=== PATIENT | female | born 1990 | race Caucasian/White ===

== ENCOUNTER 2020-10-17 00:21 | Day surgery (SDC) | payer OTHER ==
[2020-10-17 00:56] VITALS: BMI 34.4
[2020-10-17] MEDS ORDERED: hydrALAZINE 20 MG/ML VIAL SLOW IVP PRN (01:26)
[2020-10-17] MEDS ORDERED: Promethazine HCl 25 MG/ML VIAL IM SCH (01:30)
[2020-10-17] MEDS: Lactated Ringer's 1,000 ML IV SCH ×2 (01:48→03:13)
[2020-10-17] MEDS ORDERED: Ondansetron PF 4 MG/2 ML Vial IVP SCH (03:00)
== END 2020-10-17 05:25 | disposition home or self-care (01) ==
LOC: CSHLD/OP 00:21
PROVIDERS: ATTEND Obstetrics & Gynecology
DX: O99.891 Other specified diseases and conditions complicating pregnancy (principal); R19.7 Diarrhea, unspecified; O21.2 Late vomiting of pregnancy; Z3A.34 34 weeks gestation of pregnancy; Z79.899 Other long term (current) drug therapy
CPT/HCPCS: 96360; 96361; 96372; 96374; 99282; J2405; J2550

== ENCOUNTER 2020-11-01 14:12 | Outpatient (CLI) | payer OTHER ==
[2020-11-02 01:28] LABS: SARS-CoV-2 PCR by NAA Not Detected (NotDetected)
== END 2020-11-01 14:13 | disposition home or self-care (01) ==
LOC: CSHLAB 14:12
PROVIDERS: ATTEND Obstetrics & Gynecology
DX: Z20.822 Contact with and (suspected) exposure to COVID-19 (principal)
CPT/HCPCS: 87635; U0003; U0005

== ENCOUNTER 2020-11-06 15:27 | Inpatient (IN) | payer OTHER ==
[~2020-11-06 15:27] MED LIST: Bupivacaine 0.25% HCL 30 ML VIAL ONE; Lidocaine 2% 10 ML INJ ONE
[2020-11-06 21:20] VITALS: BMI 36.0
[2020-11-06] MEDS: Lactated Ringer's 1,000 ML IV SCH (21:20)
[2020-11-06] MEDS ORDERED: HYDROcodone/Acetaminophen 5/325 mg Tablet PO PRN ×2 (21:42)
[2020-11-06] MEDS ORDERED: NS / Oxytocin 40 units/1000ml 1,000 ML IV PRN (21:42)
[2020-11-06] MEDS ORDERED: Lidocaine 1% (PF) 30 ML VIAL SC PRN (21:42)
[2020-11-06] MEDS ORDERED: Promethazine HCl 25 MG/ML VIAL IM PRN (21:42)
[2020-11-06] MEDS ORDERED: Misoprostol 100 MCG TAB VAG SCH (21:42)
[2020-11-06] MEDS ORDERED: hydrALAZINE 20 MG/ML VIAL SLOW IVP PRN (21:42)
[2020-11-06] MEDS ORDERED: Ibuprofen 800 MG TAB PO PRN (21:42)
[2020-11-06] MEDS ORDERED: Ondansetron PF 4 MG/2 ML Vial IVP PRN (21:42)
[2020-11-06 22:21] LABS: Hemoglobin 12.9 g/dL (12.0-15.5); Mean Corpuscular HGB CONC 33.5 g/dL (32.0-36.0); Mean Corpuscular Hemoglobin 29.6 pg (27.0-33.0); Mean Corpuscular Volume 88.3 fl (81.6-98.3); Mean Platelet Volume 12.9 fl (7.4-10.4); Platelet Count 145 10x3/uL (150-450); RBC Distribution Width 13.1 % (11.5-14.5); Red Blood Cell (RBC) Count 4.36 10x6/uL (3.90-5.03); White Blood Cell (WBC) Count 7.4 10x3/uL (3.5-10.5)
[2020-11-06 22:40] LABS: ALT (SGPT) 19 U/L (8-55); AST (SGOT) 24 U/L (5-34); Albumin 3.3 g/dL (3.5-5.0); Alkaline Phosphatase 233 U/L (40-110); Anion Gap 16 mmol/L (10-20); BUN (Urea Nitrogen) 8 mg/dL (7.0-18.7); Bilirubin, Total 0.2 mg/dL (0.2-1.2); Calc. Creatinine Clearance 197 mL/min (70-130); Calcium 8.8 mg/dL (7.8-10.44); Carbon Dioxide 18 mmol/L (22-29); Chloride 110 mmol/L (98-107); Globulin 2.7 g/dL (2.4-3.5); Glucose 97 mg/dL (70-105); Potassium 3.8 mmol/L (3.5-5.1); Sodium 140 mmol/L (136-145)
[2020-11-06 23:01] LABS: Hep B Surf Ag Non-Reactive S/CO (NonReactive); Syphilis Antibody Nonreactive (Nonreactive); Syphilis Antibody Index 0.03 S/CO (<1.00 Non-Reactive)
[2020-11-06 23:30] LABS: HBSAg Index 0.13 S/CO (0-0.99)
[2020-11-07] MEDS: Misoprostol 100 MCG TAB VAG SCH ×2 (01:55→06:34)
[2020-11-07] MEDS ORDERED: Acetaminophen 500 MG TAB PO PRN (04:38)
[2020-11-07] MEDS: Lactated Ringer's 1,000 ML IV SCH ×4 (06:05→16:28)
[2020-11-07] MEDS: Butorphanol Tartrate 1 MG/ML VIAL SLOW IVP PRN ×2 (11:01→12:28)
[2020-11-07] MEDS: Fentanyl 4 mcg/Bup 0.1% Cadd 100 ML ONE ×2 (14:56→21:52)
[2020-11-07] MEDS ORDERED: NS w/ Oxytocin 30 units 500 ML ONE (16:21)
[2020-11-07] MEDS ORDERED: Fentanyl 4 mcg/Bup 0.1% Cadd 100 ML ONE (21:51)
[2020-11-07] MEDS ORDERED: diphenhydrAMINE 50 MG/ML VIAL IVP PRN (22:34)
[2020-11-07] MEDS ORDERED: Promethazine HCl 25 MG/ML VIAL IM PRN (22:34)
[2020-11-07] MEDS ORDERED: Eucerin (Mineral Oil/Petrolatum,White) 30 gm Jar TOP PRN (22:34)
[2020-11-07] MEDS ORDERED: Lactated Ringer's 500 ML IV PRN (22:34)
[2020-11-07] MEDS ORDERED: Naloxone HCl 0.4 mg/ml Vial IVP PRN ×2 (22:34)
[2020-11-07] MEDS ORDERED: Acetaminophen 325 MG TAB PO PRN (22:34)
[2020-11-07] MEDS ORDERED: Ondansetron PF 4 MG/2 ML Vial IVP PRN (22:34)
[2020-11-07] MEDS ORDERED: ePHEDrine 50 MG/ML VIAL SLOW IVP PRN (22:34)
[2020-11-07] MEDS ORDERED: Communication Order-Pharmacy FS SCH (22:45)
[2020-11-07] MEDS ORDERED: Fentanyl 4 mcg/Bupivacaine 0.1% Cassette 100 ML EPIDURAL SCH (22:45)
[2020-11-08] MEDS ORDERED: Fentanyl 4 mcg/Bup 0.1% Cadd 100 ML ONE ×2 (04:22→11:04)
[2020-11-08] MEDS ORDERED: Lidocaine 1% (PF) 30 ML VIAL ONE (11:11)
[2020-11-08] MEDS ORDERED: NS w/ Oxytocin 30 units 500 ML ONE (11:11)
[2020-11-08] MEDS ORDERED: Carboprost 250 MCG/ML AMP ONE (13:43)
[2020-11-08] MEDS ORDERED: Misoprostol 200 MCG TAB ONE (13:43)
[2020-11-08] MEDS ORDERED: Fentanyl 100 MCG/2 ML VIAL ONE (14:09)
[2020-11-08] MEDS ORDERED: Fentanyl 100 MCG/2 ML VIAL SLOW IVP SCH ×2 (14:15→14:30)
[2020-11-08] MEDS ORDERED: Communication Order-Pharmacy FS PRN (14:49)
[2020-11-08] MEDS ORDERED: Bicitra 30 ML UDCUP PO PRN (15:29)
[2020-11-08] MEDS ORDERED: Famotidine/PF 20 mg/2ml Vial SLOW IVP PRN (15:29)
[2020-11-08] MEDS ORDERED: CEFAZOLIN 2 GM in Premix Bag 1 BAG IVPB SCH (15:30)
[2020-11-08] MEDS ORDERED: Azithromycin 500 MG in Sodium Chloride 0.9% 250 ML 250 ML IVPB SCH (15:30)
[2020-11-08] MEDS ORDERED: Azithromycin 500 MG VIAL ONE (15:33)
[2020-11-08] MEDS ORDERED: Morphine PF 10 MG/10 ML VIAL ONE (15:49)
[2020-11-08] MEDS ORDERED: PHENYLEPHRINE-NS 100 MCG/ML 10 ML SYRINGE ONE (15:50)
[2020-11-08] MEDS ORDERED: Phenylephrine 10 MG/ML VIAL ONE (15:50)
[2020-11-08] MEDS ORDERED: Lidocaine 2% PF 100 mg/5 ml Syringe ONE (15:51)
[2020-11-08] MEDS ORDERED: Midazolam HCl 2 mg/2 ml Vial ONE ×2 (16:18→16:29)
[2020-11-08] MEDS ORDERED: PROPOFOL 20 ML ONE (16:37)
[2020-11-08] MEDS ORDERED: Ketorolac Tromethamine 30 MG/ML VIAL ONE (17:02)
[2020-11-08] MEDS ORDERED: HYDROmorphone 2 MG/ML VIAL SLOW IVP PRN (17:23)
[2020-11-08] MEDS ORDERED: Naloxone HCl 0.4 mg/ml Vial IVP PRN ×2 (17:23)
[2020-11-08] MEDS ORDERED: L&D-Morphine 4 MG/ML VIAL SLOW IVP PRN (17:23)
[2020-11-08] MEDS ORDERED: Promethazine HCl 25 MG/ML VIAL IM PRN (17:23)
[2020-11-08] MEDS ORDERED: diphenhydrAMINE 50 MG/ML VIAL IVP PRN (17:23)
[2020-11-08] MEDS ORDERED: Promethazine HCl 25 MG SUPP PR PRN (17:23)
[2020-11-08] MEDS ORDERED: Eucerin (Mineral Oil/Petrolatum,White) 30 gm Jar TOP PRN (17:23)
[2020-11-08] MEDS ORDERED: Ondansetron HCl/PF 4 MG/2 ML Vial IVP PRN (17:23)
[2020-11-08] MEDS ORDERED: Ketorolac Tromethamine 30 MG/ML VIAL IVP PRN (17:23)
[2020-11-08] MEDS ORDERED: Ondansetron PF 4 MG/2 ML Vial IVP PRN ×2 (17:23→20:26)
[2020-11-08] MEDS ORDERED: Naloxone HCl 0.4 mg/ml Vial IV PRN (17:23)
[2020-11-08] MEDS ORDERED: Meperidine HCl/PF 25 MG/ML VIAL SLOW IVP PRN (17:23)
[2020-11-08] MEDS ORDERED: Communication Order-Pharmacy FS SCH (17:30)
[2020-11-08] MEDS: Lactated Ringer's 1,000 ML IV SCH (18:40)
[2020-11-08] MEDS ORDERED: Meperidine HCl/PF 25 MG/ML VIAL ONE (18:59)
[2020-11-08] MEDS ORDERED: Lanolin Ointment 7 GM TUBE TOP PRN (20:26)
[2020-11-08] MEDS ORDERED: Simethicone Chewable 80 MG TAB PO PRN (20:26)
[2020-11-08] MEDS ORDERED: hydrALAZINE 20 MG/ML VIAL SLOW IVP PRN (20:26)
[2020-11-08] MEDS ORDERED: HYDROcodone/Acetaminophen 5/325 mg Tablet PO PRN (20:26)
[2020-11-08] MEDS ORDERED: Adacel (T-DAP) 0.5 ML SYRINGE IM ONE (20:26)
[2020-11-08] MEDS: Ibuprofen 800 MG TAB PO SCH (21:55)
[2020-11-09] MEDS: Ibuprofen 800 MG TAB PO SCH ×3 (05:49→21:33)
[2020-11-09 07:22] LABS: Hemoglobin 9.1 g/dL (12.0-15.5); Mean Corpuscular HGB CONC 32.9 g/dL (32.0-36.0); Mean Corpuscular Hemoglobin 29.8 pg (27.0-33.0); Mean Corpuscular Volume 90.8 fl (81.6-98.3); Mean Platelet Volume 12.9 fl (7.4-10.4); Platelet Count 119 10x3/uL (150-450); RBC Distribution Width 13.6 % (11.5-14.5); Red Blood Cell (RBC) Count 3.05 10x6/uL (3.90-5.03); White Blood Cell (WBC) Count 14.7 10x3/uL (3.5-10.5)
[2020-11-09] MEDS: Misoprostol 100 MCG TAB VAG SCH ×4 (07:30→07:35)
[2020-11-09] MEDS: Prenatal Vitamin 1 TAB PO SCH (09:35)
[2020-11-09] MEDS ORDERED: Hydrocerin (Eucerin) Cream 120 gm Jar TOP PRN (14:30)
[2020-11-09] MEDS: HYDROcodone/Acetaminophen 5/325 mg Tablet PO PRN ×2 (15:26→21:36)
[2020-11-10] MEDS: Ibuprofen 800 MG TAB PO SCH ×3 (04:52→22:12)
[2020-11-10] MEDS: HYDROcodone/Acetaminophen 5/325 mg Tablet PO PRN ×3 (04:53→22:30)
[2020-11-10] MEDS: Prenatal Vitamin 1 TAB PO SCH (09:03)
[2020-11-11] MEDS: HYDROcodone/Acetaminophen 5/325 mg Tablet PO PRN ×2 (05:22→12:48)
[2020-11-11] MEDS: Ibuprofen 800 MG TAB PO SCH ×2 (05:23→12:41)
[2020-11-11] MEDS: Prenatal Vitamin 1 TAB PO SCH (08:52)
[2020-11-11] MEDS ORDERED: Labetalol 100 MG TAB PO SCH ×2 (12:15→21:00)
[2020-11-11 18:29] VITALS: BP 133/70; TEMP 97.9
== END 2020-11-11 17:00 | disposition home or self-care (01) | DRG 787 ==
LOC: CSHLD 20:43 → CSHPP 11-08 20:43
PROVIDERS: ADMIT Obstetrics & Gynecology; ATTEND Obstetrics & Gynecology
PROC: 3E0DXGC Introduction of Other Therapeutic Substance into Mouth and Pharynx, External Approach (ICD-10-PCS; 2020-11-06)
PROC: 0U7C7ZZ Dilation of Cervix, Via Natural or Artificial Opening (ICD-10-PCS; 2020-11-07)
PROC: 10907ZC Drainage of Amniotic Fluid, Therapeutic from Products of Conception, Via Natural or Artificial Opening (ICD-10-PCS; 2020-11-07)
PROC: 10D00Z1 Extraction of Products of Conception, Low, Open Approach (ICD-10-PCS; principal; 2020-11-08)
DX: O13.4 Gestational [pregnancy-induced] hypertension without significant proteinuria, complicating childbirth (principal); D62 Acute posthemorrhagic anemia; Z3A.37 37 weeks gestation of pregnancy; Z37.0 Single live birth; Z20.822 Contact with and (suspected) exposure to COVID-19; O99.344 Other mental disorders complicating childbirth; O99.284 Endocrine, nutritional and metabolic diseases complicating childbirth; F90.9 Attention-deficit hyperactivity disorder, unspecified type; E03.9 Hypothyroidism, unspecified; Z79.890 Hormone replacement therapy; O90.81 Anemia of the puerperium; F41.0 Panic disorder [episodic paroxysmal anxiety]; O64.0XX0 Obstructed labor due to incomplete rotation of fetal head, not applicable or unspecified
CPT/HCPCS: 36415; 51702; 71045; 80053; 85027; 86780; 86850; 86900; 86901; 87340; J0456; J0595; J0690; J1200; J1885; J2001; J2175; J2250; J2274; J2370; J2405; J2590; J2704; J3010; S0020

== ENCOUNTER 2020-11-12 03:52 | Inpatient (IN) | payer OTHER ==
[2020-11-12] MEDS ORDERED: Promethazine HCl 25 MG/ML VIAL IM PRN (04:00)
[2020-11-12] MEDS ORDERED: Calcium Gluconate 4.6 MEQ in Sodium Chloride 0.9% 100 ML IVPB PRN (04:00)
[2020-11-12] MEDS ORDERED: hydrALAZINE 20 MG/ML VIAL SLOW IVP PRN (04:00)
[2020-11-12 04:16] VITALS: BMI 35.2
[2020-11-12] MEDS ORDERED: Furosemide 20 MG/2 ML VIAL SLOW IVP SCH (04:30)
[2020-11-12] MEDS: Magnesium Sulfate 20 gm/500 ml 20 GM/500 ML BAG IVPB SCH ×2 (04:40→15:34)
[2020-11-12] MEDS ORDERED: NIFEdipine XL 30 MG TAB PO SCH (12:00)
[2020-11-12] MEDS: HYDROcodone/Acetaminophen 5/325 mg Tablet PO PRN ×2 (13:01→20:12)
[2020-11-12] MEDS ORDERED: Loratadine 10 MG TAB PO SCH (17:15)
[2020-11-12] MEDS: Loratadine 10 MG TAB PO SCH (18:16)
[2020-11-12] MEDS: Ibuprofen 600 MG TAB PO SCH (19:34)
[2020-11-12] MEDS ORDERED: Lanolin Ointment 7 GM TUBE TOP PRN (19:44)
[2020-11-13] MEDS: Ibuprofen 600 MG TAB PO SCH ×4 (02:13→21:50)
[2020-11-13] MEDS: HYDROcodone/Acetaminophen 5/325 mg Tablet PO PRN ×4 (03:18→20:31)
[2020-11-13 07:38] LABS: SARS-CoV-2 PCR by NAA Not Detected (NotDetected)
[2020-11-13] MEDS ORDERED: NIFEdipine XL 30 MG TAB PO SCH (09:00)
[2020-11-13] MEDS ORDERED: Furosemide 20 MG/2 ML VIAL SLOW IVP SCH (09:00)
[2020-11-13] MEDS: Loratadine 10 MG TAB PO SCH (09:33)
[2020-11-13] MEDS: NIFEdipine XL 60 MG TAB PO SCH (09:33)
[2020-11-14] MEDS: Ibuprofen 600 MG TAB PO SCH ×2 (04:25→06:21)
[2020-11-14 07:55] VITALS: BP 141/80; TEMP 98.6
[2020-11-14] MEDS: NIFEdipine XL 60 MG TAB PO SCH (09:03)
== END 2020-11-14 12:10 | disposition home or self-care (01) | DRG 776 ==
LOC: CSHLD 03:52 → OBSVTOIN 03:52 → CSHPED 11-13 14:55
PROVIDERS: ADMIT Obstetrics & Gynecology; ATTEND Obstetrics & Gynecology
DX: O14.15 Severe pre-eclampsia, complicating the puerperium (principal); O99.345 Other mental disorders complicating the puerperium; F41.9 Anxiety disorder, unspecified; F39 Unspecified mood [affective] disorder; Z20.822 Contact with and (suspected) exposure to COVID-19
CPT/HCPCS: 36415; 51702; 83735; 87635; J1940; J3475; U0003; U0005